=== PATIENT | female | born 1945 | race Caucasian/White ===

== ENCOUNTER → 2016-11-21 | Outpatient (CLI) | payer OTHER ==
--- NOTE | 2016-11-21 17:11 | MA ---
Screening Digital Mammogram With Tomosynthesis and iCAD Indication: Routine screening. Technique: Standard digital CC projections were obtained. Digital breast tomosynthesis was performed in the MLO projection with reconstruction at 1.0 mm slice thickness. Composite MLO views were recons tructed. This examination was processed by the iCAD computer-aided detection system. Comparison: April 2013, January 2011, and July 2009 Breast density: Type B. Findings: CAD was reviewed. No suspicious microcalcifications, mass, or architectural distortion. Impression: Negative mammogram BI-RADS: 1 - Negative Recommendation: Routine screening is recommended in one year. [facility] will send a result letter to the patient. Negative mammography should not preclude additional workup of a clinically suspicious finding. The patient's information is entered into a reminder system with a target due date for her next mammo gram.
--- NOTE | 2016-11-21 20:33 | DX ---
DEXA Bone Mineral Densitometry Clinical Indications: Postmenopausal, osteoporosis medication x1 year Comparison: July 15, 2014 (osteoporosis in the forearm) Technique: Bone Mineral Densitometry (BMD) by Dual Energy X-Ray Absorptiometry (DEXA) was performed utilizing the gumi scanner. The lumbar spine was evaluated in the AP projection. The bilat eral hips and forearm were evaluated in the AP projection. Vertebral fracture assessment was also pe rformed. AP Lumbar Spine: The L3 and L4 vertebral bodies were evaluated. L1 and L2 are excluded due to degen erative sclerosis. BMD: 1.179 gm/cm2 T-score: -0.3 SD Z-score: 1.8 SD L3 and L4 have significantly increased by 3.2%. AP Left Hip: Neck BMD: 0.810 gm/cm2 T-score: -1.6 SD Z-score: 0.5 SD No significant change in total BMD AP Right Hip: Neck BMD: 0.827 gm/cm2 T-score: -1.5 SD Z-score: 0.6 SD No significant change in total BMD AP Left Forearm, 10/18: BMD: 0.647 gm/cm2 T-score: -2.6 SD Z-score: -0.5 SD No significant change. Vertebral Fracture Assessment: No significant fracture deformity. Degenerative sclerosis in L1 and L 2 likely increases lumbar BMD. Conclusion: Considering the lowest measured site, the patient feder[place] osteoporotic in the forearm. Sin ce the forearm is the lowest measured site, it would be worthwhile to exclude hyperparathyroidism. The ten year FRAX risk for any major osteoporotic fracture , which excludes the risk for a wrist frac ture, is 14.8% and for a hip fracture is 2.9%. To prevent osteoporosis and to promote the patient's bone density, the following recommendations shou ld be considered: 1. Pursue a regular regimen of weightbearing and muscle strengthening exercises in order to reduce t he risk of falls and fractures (as tolerated by the patient's general medical condition). 2. Ensure that daily dietary calcium uptake is maximized. 3. Consider checking the serum vitamin D level. Ensure that intake of vitamin D is 800 IU per day (f or ages 71 and older). 4. Consider follow-up DEXA scan in one year to reassess the efficacy of pharmacologic intervention.
== END ==
LOC: FIMAGING 13:27
DX: Z12.31 Encounter for screening mammogram for malignant neoplasm of breast (principal); M81.0 Age-related osteoporosis without current pathological fracture; E78.5 Hyperlipidemia, unspecified; Z79.899 Other long term (current) drug therapy
CPT/HCPCS: G0202